=== PATIENT | male | born 1985 | race Caucasian/White ===

== ENCOUNTER 2023-05-21 15:36 | Emergency (ER) | payer MEDICAID ==
[~2023-05-21] VITALS: Ht 167.6 cm; Wt 72.7 kg
[2023-05-21 15:59] VITALS: TEMP 97.9
[2023-05-21 22:00] VITALS: BP 110/74; PULSE 71; RESP 17
[2023-05-21] MEDS ORDERED: TraMADol HCL 50 MG TABLET PO ONE (22:15)
[2023-05-21] MEDS ORDERED: CefTRIAXone SODIUM 1 GM/VIAL IM ONE (22:30)
[2023-05-21] MEDS ORDERED: KETOROLAC TROMETHAMINE 30 MG/ML VIAL IM ONE (22:30)
[2023-05-21] MEDS ORDERED: LIDOCAINE/PF 1% 2 ML VIAL IM ONE (22:30)
[2023-05-21] MEDS ORDERED: IBUP-1493 PO (22:35)
[2023-05-21] MEDS ORDERED: AMOX500C2 PO (22:35)
[2023-05-21] MEDS ORDERED: HYDR-4723 PO (22:35)
== END 2023-05-21 23:10 | disposition home or self-care (01) ==
LOC: EMS 15:42
DX: K04.7 Periapical abscess without sinus (principal); K02.9 Dental caries, unspecified
CPT/HCPCS: 99284; 96372; J0696; J1885; J3490